=== PATIENT | female | born 1945 | race Caucasian/White ===

== ENCOUNTER 2018-01-28 08:27 | Emergency (ER) | payer MEDICARE ==
[2018-01-28 09:15] LABS: ADD MAN DIFF? NO
[2018-01-28 09:21] LABS: BASO % 1 % (0-3); EOS # 0.2 x10^3/uL (0.0-0.7); EOS % 2 % (0-3); HEMATOCRIT 25.8 % (36.0-47.0); HEMOGLOBIN 8.6 g/dL (12.0-15.5); LYMPH # 1.1 x10^3/uL (1.0-4.8); LYMPH % 13 % (24-48); MEAN CORPUSCULAR HEMOGLOBIN 28 pg (25-35); MEAN CORPUSCULAR HGB CONC 33 g/dL (31-37); MEAN CORPUSCULAR VOLUME 85 fL (79-100); MONO # 0.5 x10^3/uL (0.0-1.1); MONO % 6 % (0-9); NEUT % 79 % (31-73); PLATELET COUNT 358 x10^3/uL (140-400); RED BLOOD COUNT 3.04 x10^6/uL (3.50-5.40); WHITE BLOOD COUNT 8.8 x10^3/uL (4.0-11.0)
[2018-01-28 09:29] LABS: PROTHROMBIN TIME PATIENT 12.9 SEC (11.7-14.0)
[2018-01-28 09:32] LABS: ANION GAP 11 (6-14); BLOOD UREA NITROGEN 20 mg/dL (7-20); CALCIUM 9.1 mg/dL (8.5-10.1); CARBON DIOXIDE 26 mmol/L (21-32); CHLORIDE 98 mmol/L (98-107); GFR 54.3; GLUCOSE 114 mg/dL (70-99); MAGNESIUM 2.2 mg/dL (1.8-2.4); SODIUM 135 mmol/L (136-145)
[2018-01-28 09:37] LABS: TROPONINI < 0.017 ng/mL (0.000-0.055)
[2018-01-28] MEDS: fentaNYL PF VIAL 100 MCG/2 ML VIAL IV (09:40)
[2018-01-28] MEDS: ACETAMINOPHEN 500 MG TABLET PO (09:40)
[2018-01-28] MEDS: cloNIDine HCL 0.1 MG TABLET PO (09:40)
[2018-01-28 09:45] LABS: NT-PRO BNP 1295 pg/mL (0-124); THYROID STIM HORMONE (TSH) 2.721 uIU/mL (0.358-3.74)
[2018-01-28 09:45] LABS: CKMB INDEX 0.5 % (0-4); CKMB MASS 0.6 ng/mL (0.0-3.6); CREATINE KINASE 110 U/L (26-192)
[2018-01-28 10:48] LABS: BARBITURATES NEG (NEG); BENZODIAZEPINES NEG (NEG); CANNABINOIDS NEG (NEG); COCAINE NEG (NEG); METHADONE NEG (NEG); OPIATES NEG (NEG); PHENCYCLIDINE NEG (NEG)
[2018-01-28 10:50] LABS: AMPHETAMINE/METHAMPHETAMINE NEG (NEG); ETHANOL, URINE NEG (NEG)
[2018-01-28 10:52] LABS: BILIRUBIN,URINE NEGATIVE (NEG); CLARITY,URINE CLEAR; COLOR,URINE YELLOW; GLUCOSE,URINE NEGATIVE (NEG); NITRITE,URINE POSITIVE (NEG); PH,URINE 6.5; PROTEIN,URINE NEGATIVE (NEG-TRACE); UROBILINOGEN,URINE 0.2 mg/dL (0.2 mg/dL)
[2018-01-28 11:08] LABS: BACTERIA,URINE MANY /HPF (0-FEW); RBC,URINE 0 /HPF (0-2); WBC,URINE TNTC /HPF (0-4)
== END 2018-01-28 12:35 | disposition home or self-care (01) ==
LOC: ER 12:35
DX: S93.402A Sprain of unspecified ligament of left ankle, initial encounter (principal); S30.0XXA Contusion of lower back and pelvis, initial encounter; S00.83XA Contusion of other part of head, initial encounter; N39.0 Urinary tract infection, site not specified; Z95.5 Presence of coronary angioplasty implant and graft; G89.29 Other chronic pain; I10 Essential (primary) hypertension; M16.12 Unilateral primary osteoarthritis, left hip; Z90.49 Acquired absence of other specified parts of digestive tract; Z90.710 Acquired absence of both cervix and uterus; Z98.1 Arthrodesis status; Z88.8 Allergy status to other drugs, medicaments and biological substances; Z91.041 Radiographic dye allergy status; W18.39XA Other fall on same level, initial encounter; Y93.89 Activity, other specified; Y99.8 Other external cause status; Y92.89 Other specified places as the place of occurrence of the external cause
CPT/HCPCS: 29515; 36415; 51701; 70450; 70486; 71045; 72125; 72128; 72131; 73502; 73610; 80048; 80307; 81001; 82553; 83735; 83880; 84443; 84484; 85025; 85610; 87086; 93005; 96374; 99285; J3010